=== PATIENT | male | born 1955 | race Caucasian/White ===

== ENCOUNTER 2016-10-26 07:42 | Emergency (ER) | payer OTHER ==
[2016-10-26 07:47] VITALS: BP 103/60; BMI 33.5
--- NOTE | 2016-10-26 08:04 | DR.GENAD ---
HPI - PCP Primary Care Physician: anisa ddoge - Complaint/Symptoms Chief Complaint:: patient stated he scraped his stump 3 days ago and it is red. he noticed his urine yellow with a odor 6 days ago. - Nurses notes reviewed Nurses Notes Review: Yes - Source History Provided: Patient - Mode of Arrival Mode of Arrival: Ambulatory - Timing Onset of Chief Complaint: 10/19/16 Came on: Suddenly - Duration Duration: Minutes - Location Location: right head - Severity Severity: Mild - Associated Signs and Symptoms Associated Signs and Symptoms: did not eat <WARNER BOOKER - Last Filed: 10/26/16 08:00> - HPI Comment HPI Comment: INJURY WAS 3 DAYS AGO. BRUISED AND HURTING. HIS DOCTOR WANT HIM EVALUATED FOR DVT. DID STOP HIS COUMADIN FOR FEW DAYS. HE IS COUGHING AND RT CHEST PAIN. URINE SMELLING FOR PAST 6 DAYS. NO FEVER. - Complaint/Symptoms Chief Complaint Doctors Comments: INJURY AKA LT. RIGHT CHEST DISCOMFORT AND COUGH. URINE SMELL BAD. - Nurses notes reviewed Nurses Notes Review: Yes - Severity Severity: Moderate <WILLI SUNG - Last Filed: 10/26/16 11:39> PMH - PMH Past Medical History: Yes Past Medical History: Depression, Dyslipidemia, GERD, Hypertension, Ventricular Tachycardia Past Surgical History: Yes Surgical History: Ortho Surgery - Family History History of Family Medical Conditions: Yes Family Medical History: Heart Failure - Social History Does patient currently use any type of tobacco product: No Have you used tobacco products in the last 12 months: No Type of Tobacco Use: None Does any household member use tobacco: No Alcohol Use: None Do you use any recreational Drugs:: No Lives With: Alone Lives Where: Home - infectious screening In the last 2 months have you had wt loss of >10#?: NO Have you had fever, night sweats or hemotysis?: No Have you traveled outside the country in the last 6 months?: No Isolation: Standard <WARNER BOOKER - Last Filed: 10/26/16 08:00> ROS - Review of Systems Constitutional: No Symptoms Reported Eyes: No Symptoms Reported ENTM: No Symptoms Reported Respiratoy: No Symptoms Reported Cardiovascular: No Symptoms Reported Gastrointestinal/Abdominal: No Symptoms Reported Genitourinary: No Symptoms Reported Neurological: No Symptoms Reported <WARNER BOOKER - Last Filed: 10/26/16 08:00> - Review of Systems Constitutional: negative: Chills, Fever, Weakness Eyes: negative: Eye Pain, Discharge ENTM: negative: Ear Pain, Nose Discharge, Nose Congestion, Throat Pain Respiratoy: Productive Cough. negative: Short of Breath, Wheezing, Hemoptysis Cardiovascular: Chest Pain (CHEST WALL RT SIDE) Genitourinary: Other (URINE S,MELLING). negative: Dysuria, Frequency, Hematuria Musculoskeletal: Right, Hip, Other (LAKA) Integumentary: Bruises (STUMP LT AKA) Hematologic/Lymphatic: Easy Bleeding, Easy Bruising Endocrine: No Symptoms Reported All Other Systems: Reviewed and Negative <WILLI SUNG - Last Filed: 10/26/16 11:39> PE - General Limitations: No Limitations General Appearance: Alert - Head Head Exam: Normal Inspection - Eyes Eye exam: Normal Appearance - ENT ENT Exam: Normal External Ear Exam TM/Canal Exam: Bilateral Normal Nose Exam: Normal Nose Exam Mouth Exam: Normal Inspection Throat Exam: Normal Inspection - Neck Neck Exam: Trachea Midline - Chest Chest Inspection: Symmetric Chest Wall Rise - Respiratory Respiratory Exam: Normal Lung Sounds Bilat Respiratory Exam: Bilateral Rhonchi, Lower Rhonchi - Cardiovascular Cardiovascular Exam: Regular Rate, Normal Rhythm, Normal Heart Sounds - Abdominal Exam Abdominal Exam: Normal Bowel Sounds, Soft. negative: Tenderness - Extremities Extremities Exam: Tenderness (LT AKA STUMP) - Back Back Exam: Normal Inspection - Neurologic Neurological Exam: Alert, Oriented X3 - Psychiatric Psychiatric Exam: Normal Affect, Normal Mood - Skin Skin Exam: Normal Color <WILLI SUNG - Last Filed: 10/26/16 11:39> - Vital Signs Vitals: Temperature 99.9 F Pulse Rate 78 Respiratory Rate 16 Blood Pressure [Right Arm] 108/63 Blood Pressure 103/60 O2 Sat by Pulse Oximetry 96 (WARNER BOOKER) (WILLI SUNG) MDM - Differential Diagnosis Differential Diagnosis: LT HIP FRACTURE, LT HIP CONTUSION AND SPRAIN, AKA STUMP LT CONTUSION, DVT <WILLI SUNG - Last Filed: 10/26/16 11:39> Course - Treatment Treatment: SEE ORDERS. - Education/Counseling Education/Counseling: Patient, Education Educated On: Diagnosis, Needs for Follow Up <WILLI SUNG - Last Filed: 10/26/16 11:39> ROR - Labs Reviewed Laboratory Results Reviewed?: Yes Result Diagrams: 10/26/16 08:55 10/26/16 08:55 - XRAY XRAY Interpreted by: Radiologist XRAY Findings: REPORT DISCUSS WITH PATIENT. <WILLI SUNG - Last Filed: 10/26/16 11:39> - Labs Reviewed Laboratory: WBC 13.5 X10^3/uL (3.6-10.0) H 10/26/16 08:55 RBC 3.37 X10^6/uL (4.7-6.0) L 10/26/16 08:55 Hgb 9.2 g/dL (13.5-18.0) L 10/26/16 08:55 Hct 27.0 % (42.0-54.0) L 10/26/16 08:55 MCV 80.0 fL (80.0-100.0) 10/26/16 08:55 MCH 27.2 pg (27.0-34.0) 10/26/16 08:55 MCHC 34.0 g/dL (33.0-35.0) 10/26/16 08:55 RDW 13.8 % (11.6-16.5) 10/26/16 08:55 Plt Count 260 X10^3/uL (150.0-450.0) 10/26/16 08:55 MPV 8.5 fL (7.4-11.0) 10/26/16 08:55 Neut % 80.8 % (42.0-75.0) H 10/26/16 08:55 Lymph % 7.1 % (21.0-51.0) L 10/26/16 08:55 [place] % 11.3 % (0.0-13.0) 10/26/16 08:55 Eos % 0.4 % (0.9-2.9) L 10/26/16 08:55 Baso % 0.4 % (0.2-1.0) 10/26/16 08:55 Neut # 10.9 x10^3/uL (2.2-4.8) H 10/26/16 08:55 Lymph # 1.0 X10^3/uL (1.3-2.9) L 10/26/16 08:55 [place] # 1.5 x10^3/uL (0.3-0.8) H 10/26/16 08:55 Eos # 0.1 x10^3/uL (0.0-0.2) 10/26/16 08:55 Baso # 0.1 X10^3/uL (0.0-0.1) 10/26/16 08:55 Absolute Nucleated RBC 0.0 /100WBC 10/26/16 08:55 INR Target Range - 10/26/16 08:55 INR 2.00 (0.8-1.3) H 10/26/16 08:55 PTT 48.5 SECONDS (22.9-36.5) H 10/26/16 08:55 PTT Comment - 10/26/16 08:55 Sodium 137 mmol/L (136-145) 10/26/16 08:55 Corrected Sodium 137 mmol/L (136-145) 10/26/16 08:55 Potassium 4.2 mmol/L (3.5-5.1) 10/26/16 08:55 Chloride 102 mmol/L (98-107) 10/26/16 08:55 Carbon Dioxide 26.3 mmol/L (21-32) 10/26/16 08:55 BUN 16 mg/dL (7-18) 10/26/16 08:55 Creatinine 0.81 mg/dL (0.70-1.30) 10/26/16 08:55 Est GFR (MDRD) Af Amer > 60 (>60) 10/26/16 08:55 Est GFR (MDRD) Non-Af > 60 (>60) 10/26/16 08:55 Glucose 114 mg/dL (65-99) H 10/26/16 08:55 Calcium 7.8 mg/dL (8.5-10.1) L 10/26/16 08:55 Corrected Calcium 9.1 mg/dL (8.5-10.1) 10/26/16 08:55 Total Bilirubin 0.80 mg/dL (0.2-1.0) 10/26/16 08:55 AST 13 Units/L (15-37) L 10/26/16 08:55 ALT 16 Units/L (12-78) 10/26/16 08:55 Alkaline Phosphatase 73 Units/L (46-116) 10/26/16 08:55 Total Protein 6.3 g/dL (6.4-8.2) L 10/26/16 08:55 Albumin 2.6 g/dL (3.4-5.0) L 10/26/16 08:55 Globulin 3.7 g/dL (2.5-4.5) 10/26/16 08:55 Albumin/Globulin Ratio 0.7 Ratio (1.1-2.1) L 10/26/16 08:55 Specimen Type Clean catch urine 10/26/16 08:05 Urine Color Cathi (YELLOW) 10/26/16 08:05 Urine Appearance Slightly hazy (CLEAR) 10/26/16 08:05 Urine pH 5.0 (5.0 - 8.0) 10/26/16 08:05 Ur Specific [place] 1.010 (1.000-1.030) 10/26/16 08:05 Urine Protein 1+ (NEGATIVE) 10/26/16 08:05 Urine Glucose (UA) Negative (NEGATIVE) 10/26/16 08:05 Urine Ketones Negative (NEGATIVE) 10/26/16 08:05 Urine Occult Blood Negative (NEGATIVE) 10/26/16 08:05 Urine Nitrite Negative (NEGATIVE) 10/26/16 08:05 Urine Bilirubin Negative (NEGATIVE) 10/26/16 08:05 Urine Urobilinogen Normal (NORMAL) 10/26/16 08:05 Ur Leukocyte Esterase Negative (NEGATIVE) 10/26/16 08:05 Urine RBC 0 /HPF (NEGATIVE) 10/26/16 08:05 Urine WBC 0-1 /HPF (NEGATIVE) 10/26/16 08:05 Ur Squamous Epith Cells Rare /HPF (NEGATIVE) 10/26/16 08:05 Urine Bacteria Negative /HPF (NEGATIVE) 10/26/16 08:05 Urine Mucus Few /HPF (NEGATIVE) 10/26/16 08:05 Ur Culture Indicated? No/not indicated 10/26/16 08:05 <WARNER BOOKER - Last Filed: 10/26/16 08:00> <WILLI SUNG - Last Filed: 10/26/16 11:39> - Diagnosis Discharge Problem: Amputation stump injury, Hip pain, left Unilateral complete AKA Qualifiers: Laterality: left Qualified Code(s): Z89.612 - Acquired absence of left leg above knee - Discharge Plan Disposition: HOME, SELF-CARE Condition: Stable - Follow ups/Referrals Follow ups/Referrals: NFD,None [Primary Care Provider] - 3 days - Instructions Instructions: Hip Pain, Contusion, [id number]
[2016-10-26 08:17] LABS: BILIRUBIN,URINE NEGATIVE (NEGATIVE); BLOOD/HEMOGLOBIN,URINE NEGATIVE (NEGATIVE); GLUCOSE, URINE NEGATIVE (NEGATIVE); KETONES,URINE NEGATIVE (NEGATIVE); LEUKOCYTE ESTERASE ,URINE NEGATIVE (NEGATIVE); NITRITES,URINE NEGATIVE (NEGATIVE); PROTEIN,URINE 1+ (NEGATIVE); UROBILINOGEN,URINE NORMAL (NORMAL)
[2016-10-26 08:29] LABS: APPEARANCE,URINE SLIGHTLY HAZY (CLEAR); BACTERIA,URINE NEGATIVE /HPF (NEGATIVE); COLOR,URINE AMBER (YELLOW); MUCUS,URINE FEW /HPF (NEGATIVE); RBC,URINE 0 /HPF (NEGATIVE); SQUAMOUS EPITHELIAL CELL,UR RARE /HPF (NEGATIVE)
--- NOTE | 2016-10-26 08:45 | CT ---
CT head without contrast Indication: Pain after fall. Technique: Axial images from the skullbase to the vertex without contrast. Coronal and sagittal refo rmats provided. Comparison: October 06, [address] Findings: There is no acute intracranial hemorrhage, mass or mass effect. No extra-axial fluid colle ction or abnormal area of hypoattenuation to suggest infarct seen. Ventricles and sulci are normal. Review of bone windows shows no osseous abnormality. Paranasal sinuses and mastoid air cells are julienne ar. Impression: No acute intracranial abnormality or change from the prior. Reported By:
--- NOTE | 2016-10-26 08:59 | VAS ---
HISTORY: Fall with bruised left stump Study: Doppler ultrasound of the deep veins of the left leg above the stump Comparison: None TECHNIQUE: Multiple umaña scale and color flow Doppler images of the deep venous system were obtaine d of the left lower extremity. FINDINGS: The deep venous system of the left lower extremity was evaluated from the level of the common femora l vein through the superficial femoral vein , above the stump. Normal color flow and augmentation can be observed. In addition, normal compression is seen throughout the deep venous system. IMPRESSION: 1. Negative for DVT. Reported By:
--- NOTE | 2016-10-26 09:08 | RAD ---
Left hip two views Indication: Pain after trauma. Findings: There is anatomic ossification in the left femur osteotomy site. Dystrophic calcifications seen laterally. No aggressive periosteal reaction or cortical destruction seen. Pelvis degenerative change of the SI joints, hips and symphysis pubis noted. Impression: No acute osseous abnormality seen. No specific evidence of osteomyelitis or Reported By:
--- NOTE | 2016-10-26 09:14 | RAD ---
HISTORY: Chest pain Study: Single-view chest Comparison: October 06, 2015 Findings: The trachea is midline. The cardiac silhouette is unremarkable. The lungs are clear without focal infiltrate or effusion. Multiple chronic rib fractures are identified on the right. IMPRESSION: 1. No acute cardiopulmonary disease. Reported By:
[2016-10-26 09:25] LABS: BASOPHILS # (AUTO) 0.1 X10^3/uL (0.0-0.1); BASOPHILS % (AUTO) 0.4 % (0.2-1.0); EOSINOPHILS # (AUTO) 0.1 x10^3/uL (0.0-0.2); EOSINOPHILS % (AUTO) 0.4 % (0.9-2.9); HEMOGLOBIN 9.2 g/dL (13.5-18.0); LYMPHOCYTES % (AUTO) 7.1 % (21.0-51.0); MEAN CORPUSCULAR HEMOGLOBIN 27.2 pg (27.0-34.0); MEAN PLATELET VOLUME 8.5 fL (7.4-11.0); MONOCYTES # (AUTO) 1.5 x10^3/uL (0.3-0.8); MONOCYTES % (AUTO) 11.3 % (0.0-13.0); NEUTROPHILS # (AUTO) 10.9 x10^3/uL (2.2-4.8); NEUTROPHILS % (AUTO) 80.8 % (42.0-75.0); PLATELET COUNT 260 X10^3/uL (150.0-450.0); RED BLOOD COUNT 3.37 X10^6/uL (4.7-6.0); RED CELL DISTRIBUTION WIDTH 13.8 % (11.6-16.5); WHITE BLOOD COUNT 13.5 X10^3/uL (3.6-10.0)
[2016-10-26 09:55] LABS: BLOOD UREA NITROGEN 16 mg/dL (7-18); CALCIUM 7.8 mg/dL (8.5-10.1); CARBON DIOXIDE 26.3 mmol/L (21-32); CHLORIDE 102 mmol/L (98-107); COR NA(FOR HYPERGLY) 137 mmol/L (136-145); CREATININE 0.81 mg/dL (0.70-1.30); GLUCOSE 114 mg/dL (65-99); SODIUM 137 mmol/L (136-145); eGFR BLACK RACES > 60 (>60); eGFR NON BLACK RACES > 60 (>60)
[2016-10-26 10:07] LABS: ALANINE AMINOTRANSFERASE 16 Units/L (12-78); ALBUMIN 2.6 g/dL (3.4-5.0); ALKALINE PHOSPHATASE 73 Units/L (46-116); ASPARTATE AMINO TRANSFERASE 13 Units/L (15-37); COR CA(FOR HYPOALB) 9.1 mg/dL (8.5-10.1); TOTAL PROTEIN 6.3 g/dL (6.4-8.2)
== END 2016-10-26 10:22 | disposition home or self-care (01) ==
LOC: ER 07:54
DX: M25.552 Pain in left hip (principal); T87.89 Other complications of amputation stump; Z89.612 Acquired absence of left leg above knee
CPT/HCPCS: 36415; 70450; 71010; 73501; 80053; 81001; 85025; 85610; 85730; 93971; 99282; 99283

== ENCOUNTER 2021-12-11 10:18 | Inpatient (IN) ==
[2021-12-11 10:23] LABS: ABG BASE EXCESS 2.8 mmol/L (-2.0-2.0); ABG HCO3 27.2 mmol/L (22-26)
[2021-12-11 10:24] LABS: ABG ALLEN TEST POS
[2021-12-11] MEDS ORDERED: NS 1,000 ML IV 1,000 ML ONE (10:45)
[2021-12-11] MEDS ORDERED: NS 1,000 ML IV 1,000 ML IV ONE (10:58)
[2021-12-11 10:59] LABS: BASOPHILS % (AUTO) 0.6 % (0.2-1.0); EOSINOPHILS % (AUTO) 0.1 % (0.9-2.9); LYMPHOCYTES # (AUTO) 0.4 X10^3/uL (1.3-2.9); LYMPHOCYTES % (AUTO) 5.3 % (21.0-51.0); MEAN CORPUSCULAR HEMOGLOBIN 23.6 pg (27.0-34.0); MEAN CORPUSCULAR HGB CONC 31.5 g/dL (33.0-35.0); MEAN PLATELET VOLUME 7.7 fL (7.4-11.0); MONOCYTES # (AUTO) 0.4 x10^3/uL (0.3-0.8); MONOCYTES % (AUTO) 5.2 % (0.0-13.0); NEUTROPHILS # (AUTO) 7.5 x10^3/uL (2.2-4.8); NEUTROPHILS % (AUTO) 88.8 % (42.0-75.0); RED BLOOD COUNT 5.06 X10^6/uL (4.7-6.0); RED CELL DISTRIBUTION WIDTH 18.1 % (11.6-16.5); WHITE BLOOD COUNT 8.4 X10^3/uL (3.6-10.0)
[2021-12-11 11:00] LABS: BILIRUBIN,URINE 1+ (NEGATIVE); BLOOD/HEMOGLOBIN,URINE 3+ (NEGATIVE); GLUCOSE, URINE NEGATIVE (NEGATIVE); KETONES,URINE NEGATIVE (NEGATIVE); LEUKOCYTE ESTERASE ,URINE 1+ (NEGATIVE); NITRITES,URINE NEGATIVE (NEGATIVE); PROTEIN,URINE 1+ (NEGATIVE); UROBILINOGEN,URINE 2+ (NORMAL)
[2021-12-11 11:12] LABS: APPEARANCE,URINE SLIGHTLY HAZY (CLEAR); COLOR,URINE AMBER (YELLOW)
--- NOTE | 2021-12-11 11:25 | CT ---
HISTORYAMSSTUDYBRAIN W/O [id number]/25/2020.TECHNIQUEMultipl e axial images of the brain were obtained from the skull base to the vertex without administration of IV contrast. Dose reduction techniques including Automated Exposure Control (AEC) and adjustment of mA and kV were utilized.FINDINGSNo acute intraparenchymal hemorrhage or mass can be identified. No extra-axial fluid collections are seen. No alteration in the attenuation of the brain parenchyma can be identified to suggest acute or subacute ischemic change. The ventricular system is symmetric and nondilated. There is chronic appearing mucoperiosteal thickening of the left maxillary sinus without intra sinus air-fluid level. There is extracranial soft tissue swelling with on the left without radiopaque foreign body or underlying calvarial fracture.IMPRESSION1. No acute intracranial abnormality.2. Extracranial soft tissue swelling on the left without radiopaque foreign body or underlying calvarial fracture. Clinical correlation is requested.3. Chronic appearing mucoperiosteal thickening of the left maxillary sinus without CT evidence of acute sinusitis.Electronically signed by: TODD ESTRADA (Dec 11, 2021 11:24:03)
[2021-12-11 11:30] LABS: BACTERIA,URINE TRACE /HPF (NEGATIVE); CALCIUM OXALATE CRYSTALS,UR RARE /HPF (NEGATIVE); HYALINE CASTS, URINE RARE /LPF (NEGATIVE); SQUAMOUS EPITHELIAL CELL,UR NEGATIVE /HPF (NEGATIVE)
[2021-12-11 11:46] LABS: ALANINE AMINOTRANSFERASE 46 Units/L (12-78); ALKALINE PHOSPHATASE 166 Units/L (46-116); ASPARTATE AMINO TRANSFERASE 68 Units/L (15-37); BLOOD UREA NITROGEN 68 mg/dL (7-18); CALCIUM 10.2 mg/dL (8.5-10.1); CARBON DIOXIDE 29.1 mmol/L (21-32); CHLORIDE 110 mmol/L (98-107); COR CA(FOR HYPOALB) 11.8 mg/dL (8.5-10.1); COR NA(FOR HYPERGLY) 152 mmol/L (136-145); CREATINE KINASE 243 Units/L (39-308); CREATININE 1.26 mg/dL (0.70-1.30); TOTAL PROTEIN 6.6 g/dL (6.4-8.2); eGFR NON BLACK RACES > 60 (>60)
[2021-12-11 11:48] LABS: LACTIC ACID 2.7 mmol/L (0.4-2.0)
[2021-12-11 11:51] LABS: SODIUM 151 mmol/L (136-145)
--- NOTE | 2021-12-11 12:04 | RAD ---
HISTORYAMSSTUDYPortable AP chestCOMPARISONChest CT 10/24/2019FINDINGSHeart size normal. The lungs are probably clear although the medial right lung and hilum are obscured by patient rotation. Right rib deformities are consistent with old trauma. There is no evidence for pneumothorax or pleural fluid.IMPRESSIONNo acute findings, see above technical limitation.Electronically signed by: ADRIA COOK (Dec 11, 2021 12:02:55)
[2021-12-11] MEDS ORDERED: LR 1,000 ML IV 1,000 ML IV ONE ×3 (12:09→13:26)
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
[2021-12-11] MEDS ORDERED: TOBRAMYCIN SULFATE 120 MG in NS 100 ML IV 100 ML IV ONE (13:26)
[2021-12-11 13:34] LABS: BLOOD UREA NITROGEN 67 mg/dL (7-18); CALCIUM 9.7 mg/dL (8.5-10.1); CARBON DIOXIDE 29.3 mmol/L (21-32); CHLORIDE 113 mmol/L (98-107); COR NA(FOR HYPERGLY) 150 mmol/L (136-145); CREATININE 1.22 mg/dL (0.70-1.30); SODIUM 149 mmol/L (136-145); eGFR NON BLACK RACES > 60 (>60)
[2021-12-11] MEDS ORDERED: NS 250 ML IV 250 ML IV ONE (13:34)
[2021-12-11] MEDS ORDERED: D5W 250 ML IV 250 ML IV ONE (13:34)
[2021-12-11] MEDS ORDERED: TOBRAMYCIN SULFATE ONE (13:34)
[2021-12-11] MEDS ORDERED: LEVOPHED INJ (VIAL) ONE (13:37)
[2021-12-11] MEDS: LEVOPHED 8 MG/250 ML IV *PREMIX 8 MG/250 ML PLAST..BAG IV PRN (13:44)
[2021-12-11] MEDS ORDERED: NS 1/2 1,000 ML IV 1,000 ML IV ONE (15:01)
[2021-12-11] MEDS: NS 1/2 1,000 ML IV 1,000 ML IV SCH ×2 (15:05→21:55)
--- NOTE | 2021-12-11 15:43 | DR.OPNOTE ---
OP NOTE Pre-Op Diagnosis: Hypothermia, dehydration, rhabdomyolysis Post-Op Diagnosis: same Procedure Date Date Of Procedure: 12/11/21 Procedure: PROCEDURE: Placement of left subclavian vein triple Lumen venous access catheter, non tunneled NARRATIVE : Patient was placed in the Trendelenburg position and the entire left chest and left neck prepped and draped in sterile fashion. The skin overlying the left clavicle infiltrated with 1% Xylocaine and a 16-gauge needle used to puncture the left subclavian vein with good aspiration of blood. Guide wire placed without difficulty. Incision made over the guide wire and dilator placed over the guide wire into the left subclavian vein. Dilator removed and the catheter placed over the guide wire and the guide wire removed . All 3 ports aspirated of blood and flushed with heparinized saline . Post-procedure chest x-ray showed no pneumothorax with the entrance of the catheter in the left subclavian vein and then going up the left internal jugular vein. It should be able to be used . Type of Anesthesia: Local (1 % Xylocaine) EBL: minimal Complications:: none Disposition/Condition: Pt. tolerated procedure without difficulty. Post procedure CXR shows central venous access going down the left subclavian vein and into the left internal jugular vein.
--- NOTE | 2021-12-11 15:58 | RAD ---
HISTORYLine placementSTUDYPortable AP chestCOMPARISONAugust 2021FINDINGSThere is no acute finding or evidence for interval change in appearance of heart or lungs.A new surgical catheter is projected over the left upper chest, presumably a subclavian entry with passage into the neck. The tip of the catheter is not included on this image.IMPRESSIONSuboptimal/malposition CVL placement. See above.Electronically signed by: ADRIA COOK (Dec 11, 2021 15:56:15)
[2021-12-11] MEDS ORDERED: NS 1/2 1,000 ML IV 1,000 ML IV SCH (17:09)
[2021-12-11 17:46] LABS: BASOPHILS # (AUTO) 0.1 X10^3/uL (0.0-0.1); NEUTROPHILS # (AUTO) 16.1 x10^3/uL (2.2-4.8)
[2021-12-11 17:50] LABS: BASOPHILS % (AUTO) 0.6 % (0.2-1.0); HEMATOCRIT 34.7 % (42.0-54.0); LYMPHOCYTES # (AUTO) 0.5 X10^3/uL (1.3-2.9); LYMPHOCYTES % (AUTO) 3.1 % (21.0-51.0); MEAN CORPUSCULAR HEMOGLOBIN 23.5 pg (27.0-34.0); MEAN CORPUSCULAR HGB CONC 31.7 g/dL (33.0-35.0); MEAN CORPUSCULAR VOLUME 74.1 fL (80.0-100.0); MEAN PLATELET VOLUME 7.4 fL (7.4-11.0); MONOCYTES # (AUTO) 0.9 x10^3/uL (0.3-0.8); NEUTROPHILS % (AUTO) 91.3 % (42.0-75.0); RED BLOOD COUNT 4.68 X10^6/uL (4.7-6.0); RED CELL DISTRIBUTION WIDTH 18.2 % (11.6-16.5); WHITE BLOOD COUNT 17.6 X10^3/uL (3.6-10.0)
[2021-12-11] MEDS: LANOXIN INJ IVP SCH (17:50)
[2021-12-11 17:53] LABS: INR 1.69 (0.8-1.3)
[2021-12-11 17:54] LABS: LACTIC ACID 1.7 mmol/L (0.4-2.0)
[2021-12-11 18:01] LABS: ALANINE AMINOTRANSFERASE 48 Units/L (12-78); ALBUMIN 1.7 g/dL (3.4-5.0); ALKALINE PHOSPHATASE 163 Units/L (46-116); ASPARTATE AMINO TRANSFERASE 75 Units/L (15-37); BLOOD UREA NITROGEN 66 mg/dL (7-18); CALCIUM 9.2 mg/dL (8.5-10.1); CARBON DIOXIDE 28.1 mmol/L (21-32); CHLORIDE 111 mmol/L (98-107); CREATINE KINASE 147 Units/L (39-308); CREATININE 1.27 mg/dL (0.70-1.30); MAGNESIUM 1.8 mg/dL (1.7-2.9); SODIUM 148 mmol/L (136-145); TOTAL PROTEIN 5.9 g/dL (6.4-8.2); eGFR NON BLACK RACES 60 (>60)
[2021-12-11 18:21] LABS: PLATELET MORPHOLOGY COMMENT NORMAL (NORMAL)
[2021-12-11 18:24] LABS: ANISOCYTOSIS SLIGHT; MICROCYTOSIS SLIGHT
[2021-12-11 18:25] LABS: HYPOCHROMASIA SLIGHT
[2021-12-11] MEDS: INVanz INJ 1 GRAM VIAL 1 G in NS 100 ML IV 100 ML IV SCH (21:33)
[2021-12-11] MEDS ORDERED: POTASSIUM CHL 60 MEQ/NS 0.45% 500 ML IV PRN (21:39)
[2021-12-11] MEDS ORDERED: MICRO K EXTEN CAP 10 MEQ PO PRN (21:39)
[2021-12-11] MEDS ORDERED: POTASSIUM CHLORIDE LIQ 20 MEQ UDC PO PRN (21:39)
[2021-12-11] MEDS ORDERED: POTASSIUM CHL 40 MEQ/NS 0.45% 500 ML IV PRN (21:39)
[2021-12-11] MEDS: KLOR-CON PO PRN (22:42)
[2021-12-11] MEDS ORDERED: NS IV ONE (23:20)
[2021-12-12] MEDS: LANOXIN INJ IVP SCH ×2 (00:37→06:15)
[2021-12-12] MEDS: LEVOPHED 8 MG/250 ML IV *PREMIX 8 MG/250 ML PLAST..BAG IV PRN ×3 (00:57→20:42)
[2021-12-12] MEDS: NS 1/2 1,000 ML IV 1,000 ML IV SCH ×5 (01:10→22:02)
[2021-12-12] MEDS ORDERED: TYLENOL 325 MG TAB PO PRN (03:53)
[2021-12-12] MEDS ORDERED: TYLENOL 325 MG TAB PO ONE (03:58)
[2021-12-12] MEDS ORDERED: TYLENOL SUPP 650 MG ONE (04:07)
[2021-12-12 05:18] LABS: BASOPHILS # (AUTO) 0.1 X10^3/uL (0.0-0.1); BASOPHILS % (AUTO) 0.6 % (0.2-1.0); HEMATOCRIT 33.6 % (42.0-54.0); HEMOGLOBIN 10.7 g/dL (13.5-18.0); LYMPHOCYTES # (AUTO) 0.7 X10^3/uL (1.3-2.9); LYMPHOCYTES % (AUTO) 4.3 % (21.0-51.0); MEAN CORPUSCULAR HEMOGLOBIN 23.2 pg (27.0-34.0); MEAN CORPUSCULAR HGB CONC 31.7 g/dL (33.0-35.0); MEAN CORPUSCULAR VOLUME 73.3 fL (80.0-100.0); MEAN PLATELET VOLUME 7.4 fL (7.4-11.0); MONOCYTES # (AUTO) 1.3 x10^3/uL (0.3-0.8); MONOCYTES % (AUTO) 7.9 % (0.0-13.0); NEUTROPHILS # (AUTO) 14.2 x10^3/uL (2.2-4.8); NEUTROPHILS % (AUTO) 87.2 % (42.0-75.0); RED BLOOD COUNT 4.59 X10^6/uL (4.7-6.0); RED CELL DISTRIBUTION WIDTH 17.7 % (11.6-16.5); WHITE BLOOD COUNT 16.3 X10^3/uL (3.6-10.0)
[2021-12-12 05:32] LABS: ALANINE AMINOTRANSFERASE 46 Units/L (12-78); ALBUMIN 1.8 g/dL (3.4-5.0); ALKALINE PHOSPHATASE 191 Units/L (46-116); ASPARTATE AMINO TRANSFERASE 70 Units/L (15-37); BLOOD UREA NITROGEN 67 mg/dL (7-18); CALCIUM 8.9 mg/dL (8.5-10.1); CARBON DIOXIDE 24.2 mmol/L (21-32); CHLORIDE 107 mmol/L (98-107); COR CA(FOR HYPOALB) 10.7 mg/dL (8.5-10.1); CREATININE 1.64 mg/dL (0.70-1.30); MAGNESIUM 1.6 mg/dL (1.7-2.9); SODIUM 142 mmol/L (136-145); TOTAL PROTEIN 6.1 g/dL (6.4-8.2); eGFR NON BLACK RACES 45 (>60)
[2021-12-12 05:53] LABS: ANISOCYTOSIS SLIGHT; HYPOCHROMASIA 1+; MICROCYTOSIS SLIGHT; PLATELET MORPHOLOGY COMMENT NORMAL (NORMAL)
--- NOTE | 2021-12-12 06:02 | RAD ---
PROCEDURE: Left Shoulder 3 Views .HISTORY: PAIN AND SWELLING .TECHNIQUE: Left AP internal and external rotation and trans-scapular views .COMPARISON: None .TECHNICAL QUALITY: Satisfactory .FINDINGS:Obliquely oriented proximal humeral shaft fracture with 2.5 cm of medial displacement.No other acute bony abnormality.No soft tissue abnormality.IMPRESSION:Proximal humeral shaft fracture with medial displacement. Distal fracture fragment could encroach on the brachial artery and clinical correlation recommended.Electronically signed by: Cornell Esocbar (Dec 12, 2021 06:00:52)
[2021-12-12] MEDS: INVanz INJ 1 GRAM VIAL 1 G in NS 100 ML IV 100 ML IV SCH (08:30)
[2021-12-12] MEDS: MAGNESIUM SULFATE 1 GRAM/100 mL PREMIX 1 G/100 ML BAG IV PRN ×2 (09:59→12:31)
[2021-12-12] MEDS ORDERED: OFIRMEV IV 1000 MG VIAL 1,000 MG/100 ML VIAL IV PRN (11:22)
[2021-12-12 13:33] VITALS: BMI 19.1
[2021-12-12] MEDS ORDERED: NS 1/2 1,000 ML IV 1,000 ML IV ONE ×2 (14:19→21:30)
--- NOTE | 2021-12-12 14:24 | RAD ---
HISTORYTachycardiaSTUDYAP chestCOMPARISONAugust 2021FINDINGSHeart size remains normal with no evidence for developing airspace consolidation, colton pulmonary edema or pleural effusion. Left subclavian catheter is again noted extending into the left lower neck, the tip is not included on the image. Nonacute left humeral fracture again noted.IMPRESSIONNo significant change in appearance of heart or lungs. Similar malposition of central line.Electronically signed by: ADRIA COOK (Dec 12, 2021 14:22:14)
[2021-12-12] MEDS: PROTONIX INJ 40 MG VIAL IVP SCH (14:30)
[2021-12-12 14:40] LABS: FREE T4 (FREE THYROXINE) 1.06 ng/dL (0.76-1.46); TSH (3RD GENERATION) 2.724 uIU/mL (0.358-3.74)
--- NOTE | 2021-12-12 15:53 | RAD ---
HISTORYAbdomen distensionSTUDYKUBCOMPARISONNone r.br.br bowel and colon. There is no evidence for abdominal mass, ascites or urinary calcification. Surgical clips are noted in the right upper abdomen.IMPRESSIONMild nonobstructive intestinal distention. Normal KUB otherwise.Electronically signed by: ADRIA COOK (Dec 12, 2021 15:51:37)
[2021-12-13] MEDS: NS 1/2 1,000 ML IV 1,000 ML IV SCH ×5 (04:44→22:26)
[2021-12-13 05:18] LABS: BASOPHILS % (AUTO) 0.2 % (0.2-1.0); EOSINOPHILS % (AUTO) 0.1 % (0.9-2.9); HEMATOCRIT 28.7 % (42.0-54.0); HEMOGLOBIN 9.2 g/dL (13.5-18.0); MEAN CORPUSCULAR HEMOGLOBIN 23.5 pg (27.0-34.0); MEAN CORPUSCULAR HGB CONC 32.1 g/dL (33.0-35.0); MEAN CORPUSCULAR VOLUME 73.4 fL (80.0-100.0); MEAN PLATELET VOLUME 7.4 fL (7.4-11.0); MONOCYTES % (AUTO) 7.8 % (0.0-13.0); NEUTROPHILS # (AUTO) 10.2 x10^3/uL (2.2-4.8); NEUTROPHILS % (AUTO) 83.9 % (42.0-75.0); RED BLOOD COUNT 3.91 X10^6/uL (4.7-6.0); RED CELL DISTRIBUTION WIDTH 17.2 % (11.6-16.5); WHITE BLOOD COUNT 12.1 X10^3/uL (3.6-10.0)
[2021-12-13 05:38] LABS: ALANINE AMINOTRANSFERASE 39 Units/L (12-78); ALBUMIN 1.5 g/dL (3.4-5.0); ALKALINE PHOSPHATASE 183 Units/L (46-116); ASPARTATE AMINO TRANSFERASE 59 Units/L (15-37); BLOOD UREA NITROGEN 53 mg/dL (7-18); CALCIUM 8.5 mg/dL (8.5-10.1); CARBON DIOXIDE 24.3 mmol/L (21-32); CHLORIDE 104 mmol/L (98-107); CHOL/HDL RATIO 4.3 (0.0-5.0); CHOLESTEROL 90 mg/dL (0-200); COR CA(FOR HYPOALB) 10.5 mg/dL (8.5-10.1); CREATININE 1.14 mg/dL (0.70-1.30); HDL CHOLESTEROL 21 mg/dL (40-60); MAGNESIUM 1.9 mg/dL (1.7-2.9); SODIUM 137 mmol/L (136-145); TOTAL PROTEIN 5.2 g/dL (6.4-8.2); TRIGLYCERIDES 82 mg/dL (0-150); eGFR NON BLACK RACES > 60 (>60)
[2021-12-13 05:39] LABS: TOTAL PSA 1.13 ng/mL (0.13-4.0)
[2021-12-13 05:58] LABS: ANISOCYTOSIS SLIGHT; HYPOCHROMASIA 1+; MICROCYTOSIS SLIGHT; PLATELET MORPHOLOGY COMMENT NORMAL (NORMAL)
[2021-12-13] MEDS ORDERED: NS 1/2 1,000 ML IV 1,000 ML IV ONE ×2 (10:32→22:17)
[2021-12-13] MEDS: INVanz INJ 1 GRAM VIAL 1 G in NS 100 ML IV 100 ML IV SCH (10:40)
[2021-12-13] MEDS: PROTONIX INJ 40 MG VIAL IVP SCH (10:40)
[2021-12-13] MEDS: MAGNESIUM SULFATE 1 GRAM/100 mL PREMIX 1 G/100 ML BAG IV PRN ×2 (12:51→15:21)
[2021-12-13] MEDS: LEVOPHED 8 MG/250 ML IV *PREMIX 8 MG/250 ML PLAST..BAG IV PRN ×2 (12:57→19:06)
[2021-12-14] MEDS: LEVOPHED 8 MG/250 ML IV *PREMIX 8 MG/250 ML PLAST..BAG IV PRN ×2 (01:41→15:51)
[2021-12-14 05:26] LABS: BASOPHILS % (AUTO) 0.3 % (0.2-1.0); EOSINOPHILS % (AUTO) 0.4 % (0.9-2.9); HEMATOCRIT 28.5 % (42.0-54.0); LYMPHOCYTES # (AUTO) 0.8 X10^3/uL (1.3-2.9); MEAN CORPUSCULAR HEMOGLOBIN 23.2 pg (27.0-34.0); MEAN CORPUSCULAR HGB CONC 31.6 g/dL (33.0-35.0); MEAN CORPUSCULAR VOLUME 73.4 fL (80.0-100.0); MEAN PLATELET VOLUME 7.5 fL (7.4-11.0); MONOCYTES # (AUTO) 1.2 x10^3/uL (0.3-0.8); MONOCYTES % (AUTO) 9.7 % (0.0-13.0); NEUTROPHILS # (AUTO) 9.9 x10^3/uL (2.2-4.8); NEUTROPHILS % (AUTO) 82.6 % (42.0-75.0); RED BLOOD COUNT 3.88 X10^6/uL (4.7-6.0); RED CELL DISTRIBUTION WIDTH 17.9 % (11.6-16.5)
[2021-12-14 05:43] LABS: ALANINE AMINOTRANSFERASE 35 Units/L (12-78); ALBUMIN 1.5 g/dL (3.4-5.0); ALKALINE PHOSPHATASE 182 Units/L (46-116); ASPARTATE AMINO TRANSFERASE 47 Units/L (15-37); BLOOD UREA NITROGEN 32 mg/dL (7-18); CALCIUM 8.7 mg/dL (8.5-10.1); CARBON DIOXIDE 25.7 mmol/L (21-32); CHLORIDE 106 mmol/L (98-107); COR CA(FOR HYPOALB) 10.7 mg/dL (8.5-10.1); CREATININE 0.69 mg/dL (0.70-1.30); SODIUM 140 mmol/L (136-145); TOTAL PROTEIN 5.3 g/dL (6.4-8.2); eGFR NON BLACK RACES > 60 (>60)
[2021-12-14 05:54] LABS: ANISOCYTOSIS SLIGHT; HYPOCHROMASIA 1+; MICROCYTOSIS SLIGHT; PLATELET MORPHOLOGY COMMENT NORMAL (NORMAL)
[2021-12-14] MEDS: NS 1/2 1,000 ML IV 1,000 ML IV SCH ×4 (06:26→21:36)
[2021-12-14] MEDS ORDERED: NS 1/2 1,000 ML IV 1,000 ML IV ONE ×2 (08:26→21:31)
[2021-12-14] MEDS: PROTONIX INJ 40 MG VIAL IVP SCH (08:36)
[2021-12-14] MEDS: INVanz INJ 1 GRAM VIAL 1 G in NS 100 ML IV 100 ML IV SCH (08:36)
[2021-12-14] MEDS: K-RIDER 10 MEQ/NS 100 ML 10 MEQ/100 ML BAG IV PRN ×2 (10:16→12:26)
[2021-12-14] MEDS: PREVACID PO SCH (16:33)
[2021-12-14] MEDS: K-DUR TAB 20 MEQ PO PRN (20:15)
[2021-12-15 05:16] LABS: BASOPHILS % (AUTO) 0.3 % (0.2-1.0); EOSINOPHILS # (AUTO) 0.1 x10^3/uL (0.0-0.2); EOSINOPHILS % (AUTO) 0.9 % (0.9-2.9); HEMATOCRIT 26.5 % (42.0-54.0); HEMOGLOBIN 8.6 g/dL (13.5-18.0); LYMPHOCYTES # (AUTO) 0.8 X10^3/uL (1.3-2.9); LYMPHOCYTES % (AUTO) 7.5 % (21.0-51.0); MEAN CORPUSCULAR HEMOGLOBIN 23.7 pg (27.0-34.0); MEAN CORPUSCULAR HGB CONC 32.4 g/dL (33.0-35.0); MEAN CORPUSCULAR VOLUME 73.3 fL (80.0-100.0); MEAN PLATELET VOLUME 7.4 fL (7.4-11.0); MONOCYTES # (AUTO) 1.4 x10^3/uL (0.3-0.8); MONOCYTES % (AUTO) 13.3 % (0.0-13.0); NEUTROPHILS # (AUTO) 8.5 x10^3/uL (2.2-4.8); RED BLOOD COUNT 3.62 X10^6/uL (4.7-6.0); RED CELL DISTRIBUTION WIDTH 17.6 % (11.6-16.5); WHITE BLOOD COUNT 10.9 X10^3/uL (3.6-10.0)
[2021-12-15 05:29] LABS: ALANINE AMINOTRANSFERASE 32 Units/L (12-78); ALBUMIN 1.4 g/dL (3.4-5.0); ALKALINE PHOSPHATASE 172 Units/L (46-116); ASPARTATE AMINO TRANSFERASE 54 Units/L (15-37); BLOOD UREA NITROGEN 16 mg/dL (7-18); CALCIUM 8.3 mg/dL (8.5-10.1); CARBON DIOXIDE 24.5 mmol/L (21-32); CHLORIDE 105 mmol/L (98-107); COR CA(FOR HYPOALB) 10.4 mg/dL (8.5-10.1); CREATININE 0.62 mg/dL (0.70-1.30); SODIUM 139 mmol/L (136-145); TOTAL PROTEIN 5.1 g/dL (6.4-8.2); eGFR NON BLACK RACES > 60 (>60)
[2021-12-15] MEDS ORDERED: NS 1/2 1,000 ML IV 1,000 ML IV ONE ×2 (05:39→16:20)
[2021-12-15 05:42] LABS: ANISOCYTOSIS SLIGHT; HYPOCHROMASIA 1+; MICROCYTOSIS SLIGHT; PLATELET MORPHOLOGY COMMENT NORMAL (NORMAL)
[2021-12-15] MEDS: NS 1/2 1,000 ML IV 1,000 ML IV SCH ×3 (05:45→16:25)
[2021-12-15] MEDS: INVanz INJ 1 GRAM VIAL 1 G in NS 100 ML IV 100 ML IV SCH (08:22)
[2021-12-15] MEDS: PREVACID PO SCH (08:23)
[2021-12-15] MEDS: K-DUR TAB 20 MEQ PO PRN (08:23)
[2021-12-15] MEDS: HEMOCYTE-PLUS PO SCH (18:25)
[2021-12-16] MEDS ORDERED: NS 1/2 1,000 ML IV 1,000 ML IV ONE ×2 (02:32→13:18)
[2021-12-16] MEDS: NS 1/2 1,000 ML IV 1,000 ML IV SCH ×4 (04:37→14:02)
[2021-12-16 05:31] LABS: BASOPHILS % (AUTO) 0.4 % (0.2-1.0); EOSINOPHILS # (AUTO) 0.1 x10^3/uL (0.0-0.2); HEMATOCRIT 26.9 % (42.0-54.0); HEMOGLOBIN 8.7 g/dL (13.5-18.0); LYMPHOCYTES # (AUTO) 0.9 X10^3/uL (1.3-2.9); LYMPHOCYTES % (AUTO) 10.1 % (21.0-51.0); MEAN CORPUSCULAR HEMOGLOBIN 23.7 pg (27.0-34.0); MEAN CORPUSCULAR HGB CONC 32.4 g/dL (33.0-35.0); MEAN CORPUSCULAR VOLUME 73.2 fL (80.0-100.0); MEAN PLATELET VOLUME 7.7 fL (7.4-11.0); MONOCYTES # (AUTO) 1.3 x10^3/uL (0.3-0.8); MONOCYTES % (AUTO) 15.3 % (0.0-13.0); NEUTROPHILS # (AUTO) 6.4 x10^3/uL (2.2-4.8); NEUTROPHILS % (AUTO) 73.2 % (42.0-75.0); RED BLOOD COUNT 3.68 X10^6/uL (4.7-6.0); RED CELL DISTRIBUTION WIDTH 17.6 % (11.6-16.5); WHITE BLOOD COUNT 8.7 X10^3/uL (3.6-10.0)
[2021-12-16 05:46] LABS: ALANINE AMINOTRANSFERASE 37 Units/L (12-78); ALBUMIN 1.4 g/dL (3.4-5.0); ALKALINE PHOSPHATASE 170 Units/L (46-116); ASPARTATE AMINO TRANSFERASE 64 Units/L (15-37); BLOOD UREA NITROGEN 12 mg/dL (7-18); CALCIUM 8.4 mg/dL (8.5-10.1); CARBON DIOXIDE 27.4 mmol/L (21-32); CHLORIDE 104 mmol/L (98-107); COR CA(FOR HYPOALB) 10.5 mg/dL (8.5-10.1); CREATININE 0.39 mg/dL (0.70-1.30); SODIUM 138 mmol/L (136-145); TOTAL PROTEIN 5.2 g/dL (6.4-8.2); eGFR NON BLACK RACES > 60 (>60)
[2021-12-16 06:01] LABS: ANISOCYTOSIS SLIGHT; HYPOCHROMASIA SLIGHT; MICROCYTOSIS SLIGHT; PLATELET MORPHOLOGY COMMENT NORMAL (NORMAL)
[2021-12-16] MEDS: PREVACID PO SCH (08:00)
[2021-12-16] MEDS: HEMOCYTE-PLUS PO SCH (08:00)
[2021-12-16] MEDS: INVanz INJ 1 GRAM VIAL 1 G in NS 100 ML IV 100 ML IV SCH (08:00)
[2021-12-16] MEDS: LEVAQUIN PREMIX IV 500 MG 500 MG/100 ML BAG IV SCH (18:06)
[2021-12-17] MEDS ORDERED: NS 1/2 1,000 ML IV 1,000 ML IV ONE ×3 (00:14→23:27)
[2021-12-17] MEDS: NS 1/2 1,000 ML IV 1,000 ML IV SCH ×5 (00:20→23:32)
[2021-12-17 05:23] LABS: BASOPHILS % (AUTO) 0.4 % (0.2-1.0); EOSINOPHILS # (AUTO) 0.1 x10^3/uL (0.0-0.2); EOSINOPHILS % (AUTO) 1.4 % (0.9-2.9); HEMATOCRIT 26.9 % (42.0-54.0); HEMOGLOBIN 8.7 g/dL (13.5-18.0); LYMPHOCYTES # (AUTO) 0.9 X10^3/uL (1.3-2.9); LYMPHOCYTES % (AUTO) 11.1 % (21.0-51.0); MEAN CORPUSCULAR HEMOGLOBIN 23.6 pg (27.0-34.0); MEAN CORPUSCULAR HGB CONC 32.2 g/dL (33.0-35.0); MEAN CORPUSCULAR VOLUME 73.3 fL (80.0-100.0); MONOCYTES # (AUTO) 1.2 x10^3/uL (0.3-0.8); MONOCYTES % (AUTO) 15.2 % (0.0-13.0); NEUTROPHILS # (AUTO) 5.5 x10^3/uL (2.2-4.8); NEUTROPHILS % (AUTO) 71.9 % (42.0-75.0); RED BLOOD COUNT 3.67 X10^6/uL (4.7-6.0); RED CELL DISTRIBUTION WIDTH 17.8 % (11.6-16.5); WHITE BLOOD COUNT 7.7 X10^3/uL (3.6-10.0)
[2021-12-17 06:03] LABS: ANISOCYTOSIS SLIGHT; HYPOCHROMASIA 1+; MICROCYTOSIS SLIGHT; PLATELET MORPHOLOGY COMMENT NORMAL (NORMAL)
[2021-12-17 07:23] LABS: ALANINE AMINOTRANSFERASE 39 Units/L (12-78); ALBUMIN 1.4 g/dL (3.4-5.0); ALKALINE PHOSPHATASE 169 Units/L (46-116); ASPARTATE AMINO TRANSFERASE 58 Units/L (15-37); BLOOD UREA NITROGEN 10 mg/dL (7-18); CALCIUM 7.9 mg/dL (8.5-10.1); CARBON DIOXIDE 27.5 mmol/L (21-32); CHLORIDE 105 mmol/L (98-107); CREATININE 0.45 mg/dL (0.70-1.30); SODIUM 140 mmol/L (136-145); TOTAL PROTEIN 5.1 g/dL (6.4-8.2); eGFR NON BLACK RACES > 60 (>60)
[2021-12-17] MEDS: INVanz INJ 1 GRAM VIAL 1 G in NS 100 ML IV 100 ML IV SCH (10:00)
[2021-12-17] MEDS: LEVAQUIN PREMIX IV 500 MG 500 MG/100 ML BAG IV SCH (10:00)
[2021-12-17] MEDS: HEMOCYTE-PLUS PO SCH (10:00)
[2021-12-17] MEDS ORDERED: NS 100 ML IV 100 ML ONE (11:09)
[2021-12-17] MEDS: PREVACID PO SCH (14:58)
[2021-12-17] MEDS: MAGNESIUM SULFATE 1 GRAM/100 mL PREMIX 1 G/100 ML BAG IV PRN ×2 (15:28→16:45)
[2021-12-18 05:09] LABS: BASOPHILS % (AUTO) 0.2 % (0.2-1.0); EOSINOPHILS # (AUTO) 0.1 x10^3/uL (0.0-0.2); EOSINOPHILS % (AUTO) 0.9 % (0.9-2.9); HEMATOCRIT 26.8 % (42.0-54.0); HEMOGLOBIN 8.6 g/dL (13.5-18.0); LYMPHOCYTES # (AUTO) 0.9 X10^3/uL (1.3-2.9); MEAN CORPUSCULAR HEMOGLOBIN 23.6 pg (27.0-34.0); MEAN CORPUSCULAR HGB CONC 31.9 g/dL (33.0-35.0); MEAN CORPUSCULAR VOLUME 73.9 fL (80.0-100.0); MEAN PLATELET VOLUME 7.6 fL (7.4-11.0); MONOCYTES # (AUTO) 1.3 x10^3/uL (0.3-0.8); MONOCYTES % (AUTO) 11.7 % (0.0-13.0); NEUTROPHILS # (AUTO) 8.6 x10^3/uL (2.2-4.8); NEUTROPHILS % (AUTO) 79.2 % (42.0-75.0); RED BLOOD COUNT 3.63 X10^6/uL (4.7-6.0); RED CELL DISTRIBUTION WIDTH 17.7 % (11.6-16.5); WHITE BLOOD COUNT 10.8 X10^3/uL (3.6-10.0)
[2021-12-18 05:21] LABS: ALANINE AMINOTRANSFERASE 38 Units/L (12-78); ALBUMIN 1.5 g/dL (3.4-5.0); ALKALINE PHOSPHATASE 174 Units/L (46-116); ASPARTATE AMINO TRANSFERASE 51 Units/L (15-37); BLOOD UREA NITROGEN 11 mg/dL (7-18); CALCIUM 7.9 mg/dL (8.5-10.1); CARBON DIOXIDE 26.7 mmol/L (21-32); CHLORIDE 105 mmol/L (98-107); COR CA(FOR HYPOALB) 9.9 mg/dL (8.5-10.1); MAGNESIUM 1.8 mg/dL (1.7-2.9); SODIUM 139 mmol/L (136-145); TOTAL PROTEIN 5.3 g/dL (6.4-8.2); eGFR NON BLACK RACES > 60 (>60)
[2021-12-18] MEDS: K-DUR TAB 20 MEQ PO PRN (05:29)
[2021-12-18] MEDS: NS 1/2 1,000 ML IV 1,000 ML IV SCH ×3 (05:30→21:29)
[2021-12-18 05:58] LABS: PLATELET MORPHOLOGY COMMENT NORMAL (NORMAL)
[2021-12-18 05:59] LABS: ANISOCYTOSIS SLIGHT; HYPOCHROMASIA SLIGHT; MICROCYTOSIS SLIGHT; TARGET CELLS SLIGHT
[2021-12-18] MEDS ORDERED: PROCRIT or EPOGEN VIAL 10,000 UNITS SC ONE (08:31)
[2021-12-18] MEDS: PREVACID PO SCH (09:10)
[2021-12-18] MEDS: INVanz INJ 1 GRAM VIAL 1 G in NS 100 ML IV 100 ML IV SCH (09:10)
[2021-12-18] MEDS: HEMOCYTE-PLUS PO SCH (09:10)
[2021-12-18] MEDS: LEVAQUIN PREMIX IV 500 MG 500 MG/100 ML BAG IV SCH (09:10)
[2021-12-18] MEDS ORDERED: NS 1/2 1,000 ML IV 1,000 ML IV ONE ×2 (09:14→20:47)
[2021-12-18] MEDS ORDERED: ZyPREXA TAB 5 MG ONE (09:14)
[2021-12-18] MEDS: ZyPREXA TAB 5 MG PO SCH ×2 (09:28→20:17)
[2021-12-19] MEDS: NS 1/2 1,000 ML IV 1,000 ML IV SCH ×5 (05:22→23:16)
[2021-12-19 05:27] LABS: BASOPHILS # (AUTO) 0.1 X10^3/uL (0.0-0.1); BASOPHILS % (AUTO) 0.7 % (0.2-1.0); EOSINOPHILS # (AUTO) 0.1 x10^3/uL (0.0-0.2); EOSINOPHILS % (AUTO) 1.3 % (0.9-2.9); HEMOGLOBIN 8.2 g/dL (13.5-18.0); LYMPHOCYTES % (AUTO) 9.9 % (21.0-51.0); MEAN CORPUSCULAR HEMOGLOBIN 24.1 pg (27.0-34.0); MEAN CORPUSCULAR HGB CONC 32.6 g/dL (33.0-35.0); MEAN CORPUSCULAR VOLUME 73.8 fL (80.0-100.0); MEAN PLATELET VOLUME 7.7 fL (7.4-11.0); MONOCYTES # (AUTO) 1.3 x10^3/uL (0.3-0.8); MONOCYTES % (AUTO) 12.6 % (0.0-13.0); NEUTROPHILS # (AUTO) 7.9 x10^3/uL (2.2-4.8); NEUTROPHILS % (AUTO) 75.5 % (42.0-75.0); RED BLOOD COUNT 3.39 X10^6/uL (4.7-6.0); RED CELL DISTRIBUTION WIDTH 17.9 % (11.6-16.5); WHITE BLOOD COUNT 10.4 X10^3/uL (3.6-10.0)
[2021-12-19 05:38] LABS: ALANINE AMINOTRANSFERASE 45 Units/L (12-78); ALBUMIN 1.4 g/dL (3.4-5.0); ALKALINE PHOSPHATASE 179 Units/L (46-116); ASPARTATE AMINO TRANSFERASE 65 Units/L (15-37); BLOOD UREA NITROGEN 13 mg/dL (7-18); CALCIUM 7.8 mg/dL (8.5-10.1); CARBON DIOXIDE 28.6 mmol/L (21-32); CHLORIDE 107 mmol/L (98-107); COR CA(FOR HYPOALB) 9.9 mg/dL (8.5-10.1); SODIUM 141 mmol/L (136-145); TOTAL PROTEIN 5.1 g/dL (6.4-8.2); eGFR NON BLACK RACES > 60 (>60)
[2021-12-19 05:58] LABS: ANISOCYTOSIS SLIGHT; HYPOCHROMASIA 1+; MICROCYTOSIS SLIGHT; PLATELET MORPHOLOGY COMMENT NORMAL (NORMAL)
[2021-12-19] MEDS: K-DUR TAB 20 MEQ PO PRN (05:59)
[2021-12-19] MEDS: INVanz INJ 1 GRAM VIAL 1 G in NS 100 ML IV 100 ML IV SCH (08:23)
[2021-12-19] MEDS: PREVACID PO SCH (08:23)
[2021-12-19] MEDS: HEMOCYTE-PLUS PO SCH (08:23)
[2021-12-19] MEDS: LEVAQUIN PREMIX IV 500 MG 500 MG/100 ML BAG IV SCH (08:24)
[2021-12-19] MEDS: ZyPREXA TAB 5 MG PO SCH ×2 (08:24→20:49)
[2021-12-19] MEDS ORDERED: PHARMACY CONSULT - VANCOMYCIN XX SCH (10:00)
[2021-12-19] MEDS ORDERED: LOPRESSOR TAB 50 MG ONE (13:13)
[2021-12-19] MEDS: LOPRESSOR TAB 50 MG PO ONE ×2 (13:14→14:30)
[2021-12-19] MEDS: VANCOMYCIN IV *PREMIX 1 G/200 ML BAG 1 G/200 ML PIGGYBACK IV SCH ×2 (14:30→21:05)
[2021-12-19] MEDS: GENTAMICIN INJ 120 MG in NS 100 ML IV 100 ML IV SCH (16:32)
[2021-12-19] MEDS: LOPRESSOR TAB 50 MG PO SCH (20:49)
[2021-12-19] MEDS ORDERED: NS 1/2 1,000 ML IV 1,000 ML IV ONE (22:38)
[2021-12-20] MEDS: GENTAMICIN INJ 120 MG in NS 100 ML IV 100 ML IV SCH ×3 (03:26→21:44)
[2021-12-20] MEDS: VANCOMYCIN IV *PREMIX 1 G/200 ML BAG 1 G/200 ML PIGGYBACK IV SCH ×3 (05:13→21:58)
[2021-12-20] MEDS: NS 1/2 1,000 ML IV 1,000 ML IV SCH ×2 (05:13→13:36)
[2021-12-20 05:26] LABS: BASOPHILS # (AUTO) 0.1 X10^3/uL (0.0-0.1); EOSINOPHILS # (AUTO) 0.2 x10^3/uL (0.0-0.2); EOSINOPHILS % (AUTO) 1.5 % (0.9-2.9); HEMATOCRIT 25.3 % (42.0-54.0); HEMOGLOBIN 8.2 g/dL (13.5-18.0); LYMPHOCYTES % (AUTO) 9.1 % (21.0-51.0); MEAN CORPUSCULAR HEMOGLOBIN 23.9 pg (27.0-34.0); MEAN CORPUSCULAR HGB CONC 32.5 g/dL (33.0-35.0); MEAN CORPUSCULAR VOLUME 73.7 fL (80.0-100.0); MEAN PLATELET VOLUME 7.7 fL (7.4-11.0); MONOCYTES # (AUTO) 1.3 x10^3/uL (0.3-0.8); NEUTROPHILS # (AUTO) 8.9 x10^3/uL (2.2-4.8); NEUTROPHILS % (AUTO) 77.4 % (42.0-75.0); RED BLOOD COUNT 3.43 X10^6/uL (4.7-6.0); WHITE BLOOD COUNT 11.5 X10^3/uL (3.6-10.0)
[2021-12-20 05:36] LABS: ALANINE AMINOTRANSFERASE 47 Units/L (12-78); ALBUMIN 1.5 g/dL (3.4-5.0); ALKALINE PHOSPHATASE 200 Units/L (46-116); ASPARTATE AMINO TRANSFERASE 57 Units/L (15-37); BLOOD UREA NITROGEN 12 mg/dL (7-18); CALCIUM 7.8 mg/dL (8.5-10.1); CARBON DIOXIDE 26.4 mmol/L (21-32); CHLORIDE 105 mmol/L (98-107); COR CA(FOR HYPOALB) 9.8 mg/dL (8.5-10.1); CREATININE 0.41 mg/dL (0.70-1.30); SODIUM 141 mmol/L (136-145); TOTAL PROTEIN 5.4 g/dL (6.4-8.2); eGFR NON BLACK RACES > 60 (>60)
[2021-12-20 06:00] LABS: ANISOCYTOSIS SLIGHT; HYPOCHROMASIA 1+; MICROCYTOSIS SLIGHT; PLATELET MORPHOLOGY COMMENT NORMAL (NORMAL)
[2021-12-20 06:01] LABS: TARGET CELLS SLIGHT
[2021-12-20] MEDS: MAGNESIUM SULFATE 1 GRAM/100 mL PREMIX 1 G/100 ML BAG IV PRN ×2 (10:22→17:57)
[2021-12-20] MEDS: HEMOCYTE-PLUS PO SCH (10:25)
[2021-12-20] MEDS: ZyPREXA TAB 5 MG PO SCH ×2 (10:26→21:45)
[2021-12-20] MEDS: PREVACID PO SCH (10:26)
[2021-12-20] MEDS: LOPRESSOR TAB 50 MG PO SCH ×2 (10:51→23:02)
--- NOTE | 2021-12-20 11:37 | RAD ---
HISTORYPain edemaSTUDYLeft humerus two viewsCOMPARISONNoneFINDINGSAcute fracture involving the proximal metaphysis of the humerus with marked anterior displacement of the distal humeral fragment. Fracture fragments are overriding and displaced. There is a linear calcification adjacent to the upper surface of the acromion, possibly nonacute.IMPRESSIONAcute deforming and displaced fracture proximal left humerus.Electronically signed by: ADRIA COOK (Dec 20, 2021 11:35:25)
[2021-12-20] MEDS ORDERED: NS 1/2 1,000 ML IV 1,000 ML IV ONE (12:31)
[2021-12-20] MEDS ORDERED: PHARMACY COMMENT IV ONE (13:30)
[2021-12-20 14:23] LABS: CREATININE 0.46 mg/dL (0.70-1.30); VANCOMYCIN,TROUGH 14.1 ug/mL (15-20)
[2021-12-20] MEDS ORDERED: HYDROGEN PEROXIDE 3% ONE (17:29)
[2021-12-20] MEDS ORDERED: BACITRACIN ZINC ONE (19:12)
[2021-12-20] MEDS ORDERED: BACITRACIN ZINC TOP ONE (21:00)
[2021-12-21] MEDS ORDERED: NS 1/2 1,000 ML IV 1,000 ML IV ONE ×2 (00:03→20:18)
[2021-12-21] MEDS: NS 1/2 1,000 ML IV 1,000 ML IV SCH ×5 (02:06→21:26)
[2021-12-21 05:28] LABS: BASOPHILS # (AUTO) 0.1 X10^3/uL (0.0-0.1); BASOPHILS % (AUTO) 1.1 % (0.2-1.0); EOSINOPHILS # (AUTO) 0.2 x10^3/uL (0.0-0.2); EOSINOPHILS % (AUTO) 1.7 % (0.9-2.9); HEMATOCRIT 24.3 % (42.0-54.0); HEMOGLOBIN 7.8 g/dL (13.5-18.0); LYMPHOCYTES % (AUTO) 8.8 % (21.0-51.0); MEAN CORPUSCULAR HEMOGLOBIN 23.6 pg (27.0-34.0); MEAN CORPUSCULAR HGB CONC 32.2 g/dL (33.0-35.0); MEAN CORPUSCULAR VOLUME 73.3 fL (80.0-100.0); MEAN PLATELET VOLUME 7.5 fL (7.4-11.0); MONOCYTES # (AUTO) 1.3 x10^3/uL (0.3-0.8); MONOCYTES % (AUTO) 11.1 % (0.0-13.0); NEUTROPHILS % (AUTO) 77.3 % (42.0-75.0); RED BLOOD COUNT 3.31 X10^6/uL (4.7-6.0); RED CELL DISTRIBUTION WIDTH 17.9 % (11.6-16.5); WHITE BLOOD COUNT 11.7 X10^3/uL (3.6-10.0)
[2021-12-21 05:40] LABS: ANISOCYTOSIS SLIGHT; HYPOCHROMASIA 1+; MICROCYTOSIS SLIGHT; PLATELET MORPHOLOGY COMMENT NORMAL (NORMAL); TARGET CELLS SLIGHT
[2021-12-21 05:41] LABS: ALANINE AMINOTRANSFERASE 47 Units/L (12-78); ALBUMIN 1.4 g/dL (3.4-5.0); ALKALINE PHOSPHATASE 208 Units/L (46-116); ASPARTATE AMINO TRANSFERASE 51 Units/L (15-37); BLOOD UREA NITROGEN 12 mg/dL (7-18); CALCIUM 7.8 mg/dL (8.5-10.1); CHLORIDE 107 mmol/L (98-107); COR CA(FOR HYPOALB) 9.9 mg/dL (8.5-10.1); CREATININE 0.37 mg/dL (0.70-1.30); MAGNESIUM 1.8 mg/dL (1.7-2.9); SODIUM 141 mmol/L (136-145); TOTAL PROTEIN 5.4 g/dL (6.4-8.2); eGFR NON BLACK RACES > 60 (>60)
[2021-12-21] MEDS ORDERED: PHARMACY COMMENT IV ONE ×2 (08:30→10:00)
[2021-12-21] MEDS: VANCOMYCIN IV *PREMIX 1 G/200 ML BAG 1 G/200 ML PIGGYBACK IV SCH ×2 (08:30→21:28)
[2021-12-21] MEDS: TYLENOL 325 MG TAB PO PRN (09:40)
[2021-12-21] MEDS: TENORMIN PO SCH (09:50)
[2021-12-21] MEDS: PREVACID PO SCH (09:50)
[2021-12-21] MEDS: KLOR-CON PO PRN (09:50)
[2021-12-21] MEDS: HEMOCYTE-PLUS PO SCH (09:50)
[2021-12-21] MEDS: ZyPREXA TAB 5 MG PO SCH ×2 (09:50→21:29)
[2021-12-21] MEDS: K-DUR TAB 20 MEQ PO PRN (10:26)
[2021-12-21 11:09] LABS: CREATININE 0.45 mg/dL (0.70-1.30); GENTAMICIN,TROUGH 1.6 ug/mL (0-1.9)
--- NOTE | 2021-12-21 11:54 | PCM.PROG ---
Progress Note - Progress Note for Day of Date of Exam: 12/21/21 - Subjective Subjective: He is a 66-year-old white male being treated for sepsis and bacteremia. The patient is currently on gentamycin and vancomycin Systolics have remained in the 90s. The patient has definitely become more awake and alert and more talkative since admission. We reviewed diagnostic tests and lab s. His white count was at 11.7. Hemoglobin is at 7.8. His renal function is stable with a BUN of 12 and creatinine of 0.37. The patient does have an indwelling Hess catheter. The patient denied any chest pain or shortness of breath. Pt has left humerus fracture and has refused to wear immobilizer or arm sling. Repeat xray ordered for this morning. Pt was started on zyprexa bid over the weekend and tolerating well. Plan to consult ortho if patient will agree at this time. Pt is also refusing lopressor that was started over the weekend for tachycardia. Pt reports he took atenolol at home and would agree to restart that. - Past Medical Family Social History Past Med/Fam/Surg Hx: No changes since H&P Allergies: Allergies diphenhydramine [From Benadryl] Allergy (Verified 10/14/18 22:08) guaifenesin [From Robitussin] Allergy (Verified 10/14/18 22:08) haloperidol [From Haldol] Allergy (Verified 10/14/18 22:08) meperidine [From Demerol] Allergy (Verified 10/14/18 22:08) phenobarbital Allergy (Verified 10/14/18 22:08) Sulfa (Sulfonamide Antibiotics) [SULFA] Allergy (Verified 10/14/18 22:08) - Review of Systems ROS: No change since H&P - Vital Signs and I&O's Vital Signs: Temperature 97.8 F Pulse Rate 101 Respiratory Rate 23 Blood Pressure [Right Arm] 153/96 Blood Pressure 108/70 O2 Sat by Pulse Oximetry 100 Intake and Output: Intake & Output 12/18/21 12/19/21 12/20/21 12/21/21 11:59 11:59 11:59 11:59 Intake Total 1834 / 1834 3954 / 3954 4088 / 4088 4200 / 4200 Output Total 3850 / 3850 3425 / 3425 4900 / 4900 4400 / 4400 Balance -2015 / 529 / 529 -812 / -812 -200 / -200 - Physical Exam Oriented: Normal Eyes: Normal Ear: Normal Throat: Normal Respiratory: Diminished Cardiovascular: Tachycardia : Normal Auscultation: Bowel Sounds: Normal Tenderness: Normal Skin: Decreased Turgur, Wound Musculoskeletal: Left, Shoulder, Swelling, Tender, Deformity Psychiatric: Anxiety Mood Description: Anxious Affect: Anxious Speech Pattern: Clear, Excessive - Laboratory and Diagnostics Result Diagrams: 12/21/21 04:57 12/21/21 04:57 Labs: 12/13/21 18:30 Blood Blood Culture - Final 12/13/21 18:45 Blood Blood Culture - Final Staphylococcus Epidermidis 12/12/21 13:15 Chest Wound Gram Stain - Final 12/12/21 13:15 Chest Wound Culture - Final Proteus Mirabilis 12/12/21 13:15 Knee - Right Wound Gram Stain - Final 12/12/21 13:15 Knee - Right Wound Culture - Final Proteus Mirabilis Klebsiella Pneumoniae 12/11/21 11:19 Blood Blood Culture - Final Klebsiella Pneumoniae Proteus Mirabilis 12/11/21 10:35 Blood Blood Culture - Final Staphylococcus Epidermidis 12/12/21 13:15 Hip - Left Wound Gram Stain - Final 12/12/21 13:15 Hip - Left Wound Culture - Final Proteus Mirabilis Klebsiella Pneumoniae 12/12/21 13:15 Urine,Clean Catch Urine Culture - Final Klebsiella Pneumoniae Laboratory WBC 11.7 X10^3/uL (3.6-10.0) H 12/21/21 04:57 RBC 3.31 X10^6/uL (4.7-6.0) L 12/21/21 04:57 Hgb 7.8 g/dL (13.5-18.0) L 12/21/21 04:57 Hct 24.3 % (42.0-54.0) L 12/21/21 04:57 MCV 73.3 fL (80.0-100.0) L 12/21/21 04:57 MCH 23.6 pg (27.0-34.0) L 12/21/21 04:57 MCHC 32.2 g/dL (33.0-35.0) L 12/21/21 04:57 RDW 17.9 % (11.6-16.5) H 12/21/21 04:57 Plt Count 368 X10^3/uL (150.0-450.0) 12/21/21 04:57 Plt Count Comment Adequate (ADEQUATE) 12/21/21 04:57 MPV 7.5 fL (7.4-11.0) 12/21/21 04:57 Neut % (Auto) 77.3 % (42.0-75.0) H 12/21/21 04:57 Lymph % (Auto) 8.8 % (21.0-51.0) L 12/21/21 04:57 [place] % (Auto) 11.1 % (0.0-13.0) 12/21/21 04:57 Eos % (Auto) 1.7 % (0.9-2.9) 12/21/21 04:57 Baso % (Auto) 1.1 % (0.2-1.0) H 12/21/21 04:57 Neut # (Auto) 9.0 x10^3/uL (2.2-4.8) H 12/21/21 04:57 Lymph # (Auto) 1.0 X10^3/uL (1.3-2.9) L 12/21/21 04:57 [place] # (Auto) 1.3 x10^3/uL (0.3-0.8) H 12/21/21 04:57 Eos # (Auto) 0.2 x10^3/uL (0.0-0.2) 12/21/21 04:57 Baso # (Auto) 0.1 X10^3/uL (0.0-0.1) 12/21/21 04:57 Absolute Nucleated RBC 0.0 /100WBC 12/21/21 04:57 Total Counted 100 12/11/21 17:25 Neutrophils % (Manual) 93 % (39-76) H 12/11/21 17:25 Lymphocytes % (Manual) 3 % (13-43) L 12/11/21 17:25 Monocytes % (Manual) 4 % (4-9) 12/11/21 17:25 Plt Morphology Comment Normal (NORMAL) 12/21/21 04:57 RBC Morphology Abnormal (NORMAL) 12/21/21 04:57 Hypochromasia 1+ A 12/21/21 04:57 Anisocytosis Slight A 12/21/21 04:57 Microcytosis Slight A 12/21/21 04:57 Target Cells Slight A 12/21/21 04:57 PT 19.3 SECONDS (11.8-14.3) 12/11/21 17:25 INR Target Range - 12/11/21 17:25 INR 1.69 (0.8-1.3) H 12/11/21 17:25 APTT 43.1 SECONDS (22.9-36.5) H 12/11/21 17:25 PTT Comment - 12/11/21 17:25 D-Dimer 1.53 ug/ml (0.0-0.57) H 12/11/21 11:19 Sample Site Rrad 12/11/21 10:15 ABG pH 7.440 (7.35-7.45) 12/11/21 10:15 ABG pCO2 40.0 mmHg (35.0-45.0) 12/11/21 10:15 ABG pO2 158.0 mmHg (80.0-100.0) H 12/11/21 10:15 ABG HCO3 27.2 mmol/L (22-26) H 12/11/21 10:15 ABG O2 Saturation 99.0 % (90-100) 12/11/21 10:15 ABG Base Excess 2.8 mmol/L (-2.0-2.0) H 12/11/21 10:15 Mendoza Test Pos 12/11/21 10:15 A-a Gradient -58.0 mmHg 12/11/21 10:15 FiO2 21.0 12/11/21 10:15 Blood Gas Comments Pt jennifer well elj cdn 12/11/21 10:15 Sodium 141 mmol/L (136-145) 12/21/21 04:57 Corrected Sodium TNP 12/21/21 04:57 Potassium 3.8 mmol/L (3.5-5.1) 12/21/21 04:57 Chloride 107 mmol/L (98-107) 12/21/21 04:57 Carbon Dioxide 27.0 mmol/L (21-32) 12/21/21 04:57 BUN 12 mg/dL (7-18) 12/21/21 04:57 Creatinine 0.37 mg/dL (0.70-1.30) L 12/21/21 04:57 Est GFR (MDRD) Af Amer > 60 (>60) 12/21/21 04:57 Est GFR (MDRD) Non-Af > 60 (>60) 12/21/21 04:57 Glucose 97 mg/dL (65-99) 12/21/21 04:57 POC Glucose (mg/dL) 89 mg/dL (65-99) 12/18/21 06:01 Lactic Acid 1.7 mmol/L (0.4-2.0) 12/11/21 17:25 Calcium 7.8 mg/dL (8.5-10.1) L 12/21/21 04:57 Corrected Calcium 9.9 mg/dL (8.5-10.1) 12/21/21 04:57 Magnesium 1.8 mg/dL (1.7-2.9) 12/21/21 04:57 Iron 20 ug/dL (50-175) L 12/12/21 04:25 Transferrin 102 mg/dL (202-364) L 12/12/21 04:25 Ferritin 3750 ng/mL (26-388) H 12/12/21 04:25 Total Bilirubin 0.20 mg/dL (0.2-1.0) 12/21/21 04:57 AST 51 Units/L (15-37) H 12/21/21 04:57 ALT 47 Units/L (12-78) 12/21/21 04:57 Alkaline Phosphatase 208 Units/L (46-116) H 12/21/21 04:57 Creatine Kinase 147 Units/L (39-308) 12/11/21 17:25 Troponin I High Sens 13.1 ng/L (4.0-60.0) 12/11/21 17:25 Total Protein 5.4 g/dL (6.4-8.2) L 12/21/21 04:57 Albumin 1.4 g/dL (3.4-5.0) L 12/21/21 04:57 Globulin 4.0 g/dL (2.5-4.5) 12/21/21 04:57 Albumin/Globulin Ratio 0.4 Ratio (1.1-2.1) L 12/21/21 04:57 Triglycerides 82 mg/dL (0-150) 12/13/21 04:20 Cholesterol 90 mg/dL (0-200) 12/13/21 04:20 LDL Cholesterol, Calc 53 mg/dL (0-100) 12/13/21 04:20 HDL Cholesterol 21 mg/dL (40-60) L 12/13/21 04:20 Cholesterol/HDL Ratio 4.3 (0.0-5.0) 12/13/21 04:20 Total PSA 1.13 ng/mL (0.13-4.0) 12/13/21 04:20 Vitamin B12 1439 pg/mL (193-986) H 12/12/21 04:25 Folate 2.1 ng/mL (>8.6) L 12/12/21 04:25 Free T4 1.06 ng/dL (0.76-1.46) 12/12/21 04:25 TSH 3rd Generation 2.724 uIU/mL (0.358-3.74) 12/12/21 04:25 Specimen Type Catherized urine 12/11/21 10:25 Urine Color Cathi (YELLOW) 12/11/21 10:25 Urine Appearance Slightly hazy (CLEAR) 12/11/21 10:25 Urine pH 6.0 (5.0 - 8.0) 12/11/21 10:25 Ur Specific [place] 1.025 (1.000-1.030) 12/11/21 10:25 Urine Protein 1+ (NEGATIVE) 12/11/21 10:25 Urine Glucose (UA) Negative (NEGATIVE) 12/11/21 10:25 Urine Ketones Negative (NEGATIVE) 12/11/21 10:25 Urine Blood 3+ (NEGATIVE) 12/11/21 10:25 Urine Nitrite Negative (NEGATIVE) 12/11/21 10:25 Urine Bilirubin 1+ (NEGATIVE) 12/11/21 10:25 Urine Urobilinogen 2+ (NORMAL) 12/11/21 10:25 Ur Leukocyte Esterase 1+ (NEGATIVE) 12/11/21 10:25 Urine RBC 5-10 /HPF (0-3) A 12/11/21 10:25 Urine WBC 3-5 /HPF (0-5) 12/11/21 10:25 Ur Squamous Epith Cells Negative /HPF (NEGATIVE) 12/11/21 10:25 Calcium Oxalate Crystal Rare /HPF (NEGATIVE) 12/11/21 10:25 Amorphous Sediment Trace /HPF (NEGATIVE) 12/11/21 10:25 Urine Bacteria Trace /HPF (NEGATIVE) 12/11/21 10:25 Hyaline Casts Rare /LPF (NEGATIVE) 12/11/21 10:25 Ur Culture Indicated? No/not indicated 12/11/21 10:25 Stool Description 100g brn lqd 12/13/21 10:10 Stl Occult Blood (IFOB) Positive (NEGATIVE) A 12/13/21 10:10 Vancomycin Trough 14.1 ug/mL (15-20) L 12/20/21 13:40 Urine Opiates Screen TNP 12/11/21 10:25 Urine Methadone Screen Negative (NEG=<300) 12/11/21 10:25 Ur Barbiturates Screen Negative (NEG=<200) 12/11/21 10:25 Ur Phencyclidine Scrn Negative (NEG=<25) 12/11/21 10:25 Ur Amphetamines Screen Negative (NEG=<1000) 12/11/21 10:25 U Benzodiazepines Scrn Negative (NEG=<200) 12/11/21 10:25 Urine Cocaine Screen Negative (NEG=<300) 12/11/21 10:25 U Marijuana (THC) Screen Negative (NEG=<50) 12/11/21 10:25 SARS-CoV-2 (PCR) Negative (NEGATIVE) 12/11/21 11:00 - Plan (1) Bacteremia Status: Acute Plan: IV ANTIBIOTICS, BP AND CARDIAC MONITORING. IV HYDRATION, WOUND CARE. PT/OT, PAIN CONTROL. STRICT I&OS, PRN SUPPLEMENTAL O2 (2) Pressure ulcer Status: Acute (3) Left humeral fracture Status: Acute (4) UTI (urinary tract infection) Status: Acute (5) Sepsis Status: Acute
[2021-12-21] MEDS: GENTAMICIN INJ 120 MG in NS 100 ML IV 100 ML IV SCH (12:12)
[2021-12-21 14:40] LABS: CREATININE 0.49 mg/dL (0.70-1.30); VANCOMYCIN,TROUGH 19.8 ug/mL (15-20)
[2021-12-21] MEDS ORDERED: INVanz INJ 1 GRAM VIAL 1 G in NS 100 ML IV 100 ML IV SCH (14:44)
[2021-12-21] MEDS: MAGNESIUM SULFATE 1 GRAM/100 mL PREMIX 1 G/100 ML BAG IV PRN ×3 (16:45→21:00)
[2021-12-21] MEDS ORDERED: MAGNESIUM SULFATE 1 GRAM/100 mL PREMIX 1 G/100 ML BAG IV ONE (18:11)
[2021-12-21] MEDS: LEVAQUIN PREMIX IV 500 MG 500 MG/100 ML BAG IV SCH (21:27)
[2021-12-21] MEDS: INVanz INJ 1 GRAM VIAL 1 G in NS 100 ML IV 100 ML IV SCH (21:28)
[2021-12-22 05:15] LABS: BASOPHILS % (AUTO) 0.4 % (0.2-1.0); EOSINOPHILS # (AUTO) 0.3 x10^3/uL (0.0-0.2); EOSINOPHILS % (AUTO) 2.4 % (0.9-2.9); HEMATOCRIT 24.1 % (42.0-54.0); HEMOGLOBIN 7.7 g/dL (13.5-18.0); LYMPHOCYTES # (AUTO) 0.4 X10^3/uL (1.3-2.9); LYMPHOCYTES % (AUTO) 3.4 % (21.0-51.0); MEAN CORPUSCULAR HEMOGLOBIN 23.5 pg (27.0-34.0); MEAN CORPUSCULAR HGB CONC 31.9 g/dL (33.0-35.0); MEAN CORPUSCULAR VOLUME 73.5 fL (80.0-100.0); MEAN PLATELET VOLUME 7.4 fL (7.4-11.0); MONOCYTES # (AUTO) 0.9 x10^3/uL (0.3-0.8); NEUTROPHILS # (AUTO) 9.6 x10^3/uL (2.2-4.8); NEUTROPHILS % (AUTO) 85.8 % (42.0-75.0); RED BLOOD COUNT 3.28 X10^6/uL (4.7-6.0); RED CELL DISTRIBUTION WIDTH 17.5 % (11.6-16.5); WHITE BLOOD COUNT 11.1 X10^3/uL (3.6-10.0)
[2021-12-22 05:26] LABS: ALANINE AMINOTRANSFERASE 47 Units/L (12-78); ALBUMIN 1.4 g/dL (3.4-5.0); ALKALINE PHOSPHATASE 209 Units/L (46-116); ASPARTATE AMINO TRANSFERASE 53 Units/L (15-37); BLOOD UREA NITROGEN 12 mg/dL (7-18); CALCIUM 7.6 mg/dL (8.5-10.1); CARBON DIOXIDE 27.6 mmol/L (21-32); CHLORIDE 106 mmol/L (98-107); COR CA(FOR HYPOALB) 9.7 mg/dL (8.5-10.1); CREATININE 0.56 mg/dL (0.70-1.30); MAGNESIUM 1.9 mg/dL (1.7-2.9); SODIUM 141 mmol/L (136-145); TOTAL PROTEIN 5.4 g/dL (6.4-8.2); eGFR NON BLACK RACES > 60 (>60)
[2021-12-22 05:39] LABS: ANISOCYTOSIS SLIGHT; BAND NEUTROPHILS % 1 % (0-10); HYPOCHROMASIA 1+; MICROCYTOSIS SLIGHT; PLATELET MORPHOLOGY COMMENT NORMAL (NORMAL); TARGET CELLS 1+
[2021-12-22] MEDS: NS 1/2 1,000 ML IV 1,000 ML IV SCH ×3 (07:20→21:29)
[2021-12-22] MEDS: INVanz INJ 1 GRAM VIAL 1 G in NS 100 ML IV 100 ML IV SCH (09:29)
[2021-12-22] MEDS: LEVAQUIN PREMIX IV 500 MG 500 MG/100 ML BAG IV SCH (09:29)
[2021-12-22] MEDS: ZyPREXA TAB 5 MG PO SCH ×2 (09:30→20:13)
[2021-12-22] MEDS: HEMOCYTE-PLUS PO SCH ×2 (10:16→15:32)
[2021-12-22] MEDS: PREVACID PO SCH (10:16)
[2021-12-22] MEDS: TENORMIN PO SCH ×2 (10:17→15:32)
[2021-12-22] MEDS: MAGNESIUM SULFATE 1 GRAM/100 mL PREMIX 1 G/100 ML BAG IV PRN ×2 (12:30→14:00)
--- NOTE | 2021-12-22 13:15 | CT ---
CT left humerus without contrastIndication: FractureCOMPARISONAugust 2021 radiographTECHNIQUEHelical images through the left humerus without contrast. Coronal and sagittal reformats provided.FINDINGSPartially visualized hardware is seen in left radius. Glenohumeral joint DJD noted. Mild AC joint DJD noted.There is comminuted fracture with amorphous calcific density seen on axial images 54-40 around the fracture site. Lucency in the medullary cavity, and a moth-eaten appearance to the cortex of the bone adjacent to the fracture site seen on axial image 53 and axial image 39 is noted. This is highly concerning for pathologic fracture and underlying lesion. The distal humeral shaft is displaced 1.5 shaft with anteriorly, with posterior angulation noted. Soft tissue swelling around the fracture site is noted, with amorphous calcifications, possibly healing callus/heterotopic calcification. Calcifications within a pre-existing mass are not excluded.IMPRESSION1. Comminuted angulated and displaced proximal humeral diaphysis fracture, probably pathologic2. There is lucency at the fracture site and a moth-eaten appearance to the cortex just above and below the fracture, with amorphous calcifications suggesting periosteal reaction versus healing callus/heterotopic calcification. Underlying mass presumed. Surgical consultation recommended. MR follow-up recommended, preferably with and without contrast.3. Prominent heart size and left effusion likely.Electronically signed by: JOHN LUI (Dec 22, 2021 13:13:22)
[2021-12-22] MEDS ORDERED: NS 1/2 1,000 ML IV 1,000 ML IV ONE (13:16)
[2021-12-22] MEDS: SENOKOT PO PRN (15:33)
[2021-12-22 18:29] LABS: HEMATOCRIT 27.3 % (42.0-54.0); HEMOGLOBIN 8.6 g/dL (13.5-18.0)
[2021-12-22] MEDS: TYLENOL 325 MG TAB PO PRN (21:03)
[2021-12-23] MEDS: NS 1/2 1,000 ML IV 1,000 ML IV SCH ×4 (05:02→21:00)
[2021-12-23 06:30] LABS: BASOPHILS # (AUTO) 0.1 X10^3/uL (0.0-0.1); BASOPHILS % (AUTO) 0.9 % (0.2-1.0); EOSINOPHILS # (AUTO) 0.1 x10^3/uL (0.0-0.2); LYMPHOCYTES # (AUTO) 0.7 X10^3/uL (1.3-2.9); LYMPHOCYTES % (AUTO) 7.7 % (21.0-51.0); MEAN CORPUSCULAR HEMOGLOBIN 23.9 pg (27.0-34.0); MEAN CORPUSCULAR HGB CONC 32.2 g/dL (33.0-35.0); MEAN CORPUSCULAR VOLUME 74.2 fL (80.0-100.0); MEAN PLATELET VOLUME 7.7 fL (7.4-11.0); MONOCYTES # (AUTO) 0.9 x10^3/uL (0.3-0.8); MONOCYTES % (AUTO) 9.5 % (0.0-13.0); NEUTROPHILS # (AUTO) 7.9 x10^3/uL (2.2-4.8); NEUTROPHILS % (AUTO) 80.9 % (42.0-75.0); RED BLOOD COUNT 3.36 X10^6/uL (4.7-6.0); WHITE BLOOD COUNT 9.7 X10^3/uL (3.6-10.0)
[2021-12-23 06:44] LABS: ALANINE AMINOTRANSFERASE 41 Units/L (12-78); ALBUMIN 1.5 g/dL (3.4-5.0); ALKALINE PHOSPHATASE 215 Units/L (46-116); ASPARTATE AMINO TRANSFERASE 36 Units/L (15-37); BLOOD UREA NITROGEN 11 mg/dL (7-18); CARBON DIOXIDE 27.5 mmol/L (21-32); CHLORIDE 105 mmol/L (98-107); CREATININE 0.45 mg/dL (0.70-1.30); SODIUM 139 mmol/L (136-145); TOTAL PROTEIN 5.7 g/dL (6.4-8.2); eGFR NON BLACK RACES > 60 (>60)
[2021-12-23 06:53] LABS: ANISOCYTOSIS SLIGHT; HYPOCHROMASIA 1+; PLATELET MORPHOLOGY COMMENT NORMAL (NORMAL)
[2021-12-23 06:54] LABS: MICROCYTOSIS SLIGHT; TARGET CELLS SLIGHT
[2021-12-23] MEDS: ZyPREXA TAB 5 MG PO SCH ×2 (08:38→20:58)
[2021-12-23] MEDS: INVanz INJ 1 GRAM VIAL 1 G in NS 100 ML IV 100 ML IV SCH (08:39)
[2021-12-23] MEDS: SENOKOT PO PRN (08:41)
[2021-12-23] MEDS: TENORMIN PO SCH (08:41)
[2021-12-23] MEDS: PREVACID PO SCH (08:41)
[2021-12-23] MEDS: HEMOCYTE-PLUS PO SCH (08:41)
[2021-12-23] MEDS ORDERED: PROCTOZONE HC CRM 2.5% (ANUSOL-HC) TOP PRN (08:59)
[2021-12-23] MEDS ORDERED: ZOFRAN TAB 4 MG PO PRN (08:59)
[2021-12-23] MEDS: LEVAQUIN PREMIX IV 500 MG 500 MG/100 ML BAG IV SCH (09:09)
[2021-12-23] MEDS: TYLENOL 325 MG TAB PO PRN ×2 (11:03→20:58)
[2021-12-23] MEDS ORDERED: NS 1/2 1,000 ML IV 1,000 ML IV ONE (17:06)
[2021-12-24 06:09] LABS: BASOPHILS # (AUTO) 0.1 X10^3/uL (0.0-0.1); BASOPHILS % (AUTO) 0.9 % (0.2-1.0); EOSINOPHILS # (AUTO) 0.1 x10^3/uL (0.0-0.2); EOSINOPHILS % (AUTO) 1.4 % (0.9-2.9); HEMATOCRIT 24.1 % (42.0-54.0); HEMOGLOBIN 7.8 g/dL (13.5-18.0); LYMPHOCYTES % (AUTO) 9.5 % (21.0-51.0); MEAN CORPUSCULAR HEMOGLOBIN 23.7 pg (27.0-34.0); MEAN CORPUSCULAR HGB CONC 32.2 g/dL (33.0-35.0); MEAN CORPUSCULAR VOLUME 73.4 fL (80.0-100.0); MEAN PLATELET VOLUME 7.4 fL (7.4-11.0); MONOCYTES # (AUTO) 0.9 x10^3/uL (0.3-0.8); MONOCYTES % (AUTO) 9.1 % (0.0-13.0); NEUTROPHILS # (AUTO) 8.1 x10^3/uL (2.2-4.8); NEUTROPHILS % (AUTO) 79.1 % (42.0-75.0); RED BLOOD COUNT 3.28 X10^6/uL (4.7-6.0); RED CELL DISTRIBUTION WIDTH 17.4 % (11.6-16.5); WHITE BLOOD COUNT 10.2 X10^3/uL (3.6-10.0)
[2021-12-24] MEDS: NS 1/2 1,000 ML IV 1,000 ML IV SCH ×3 (06:09→13:54)
[2021-12-24 06:16] LABS: ALANINE AMINOTRANSFERASE 36 Units/L (12-78); ALBUMIN 1.5 g/dL (3.4-5.0); ALKALINE PHOSPHATASE 207 Units/L (46-116); ASPARTATE AMINO TRANSFERASE 29 Units/L (15-37); BLOOD UREA NITROGEN 13 mg/dL (7-18); CALCIUM 7.8 mg/dL (8.5-10.1); CARBON DIOXIDE 28.1 mmol/L (21-32); CHLORIDE 104 mmol/L (98-107); COR CA(FOR HYPOALB) 9.8 mg/dL (8.5-10.1); CREATININE 0.43 mg/dL (0.70-1.30); SODIUM 139 mmol/L (136-145); TOTAL PROTEIN 5.5 g/dL (6.4-8.2); eGFR NON BLACK RACES > 60 (>60)
[2021-12-24 06:33] LABS: ANISOCYTOSIS SLIGHT; MICROCYTOSIS SLIGHT; PLATELET MORPHOLOGY COMMENT NORMAL (NORMAL); TARGET CELLS FEW
[2021-12-24] MEDS: INVanz INJ 1 GRAM VIAL 1 G in NS 100 ML IV 100 ML IV SCH (09:45)
[2021-12-24] MEDS: LEVAQUIN PREMIX IV 500 MG 500 MG/100 ML BAG IV SCH (09:45)
[2021-12-24] MEDS: PREVACID PO SCH (09:45)
[2021-12-24] MEDS: HEMOCYTE-PLUS PO SCH (09:45)
[2021-12-24] MEDS: TENORMIN PO SCH (09:46)
[2021-12-24] MEDS: ZyPREXA TAB 5 MG PO SCH (09:46)
[2021-12-24] MEDS ORDERED: NS 1/2 1,000 ML IV 1,000 ML IV ONE (09:48)
[2021-12-24] MEDS: TYLENOL 325 MG TAB PO PRN (09:50)
[2021-12-24] MEDS: SENOKOT PO PRN (10:32)
[2021-12-24 12:38] VITALS: BP 91/59
[2021-12-24] MEDS ORDERED: ANTIVERT TAB 25 MG PO PRN (13:19)
[2021-12-24] MEDS: ALPHAGAN 0.2% OPHTH SOLN AFFEYE SCH ×3 (14:01→14:13)
== END 2021-12-24 15:29 | disposition home health service (06) | DRG 872 ==
LOC: ER 10:18 → ICU 14:38 → MED/SURG 12-22 19:25
PROVIDERS: ADMIT Internal Medicine; ATTEND Internal Medicine
DX: W18.39XA Other fall on same level, initial encounter; Z89.612 Acquired absence of left leg above knee; N17.8 Other acute kidney failure; R41.82 Altered mental status, unspecified; K21.9 Gastro-esophageal reflux disease without esophagitis; I95.89 Other hypotension; K92.1 Melena; I10 Essential (primary) hypertension; S42.292A Other displaced fracture of upper end of left humerus, initial encounter for closed fracture; E87.0 Hyperosmolality and hypernatremia; K59.09 Other constipation; A41.1 Sepsis due to other specified staphylococcus; L89.152 Pressure ulcer of sacral region, stage 2; E86.0 Dehydration; L89.221 Pressure ulcer of left hip, stage 1; L89.899 Pressure ulcer of other site, unspecified stage; Z66 Do not resuscitate; B96.4 Proteus (mirabilis) (morganii) as the cause of diseases classified elsewhere; B96.1 Klebsiella pneumoniae [K. pneumoniae] as the cause of diseases classified elsewhere; Z20.822 Contact with and (suspected) exposure to COVID-19; R62.7 Adult failure to thrive; R79.1 Abnormal coagulation profile; M25.512 Pain in left shoulder; E78.2 Mixed hyperlipidemia; N39.0 Urinary tract infection, site not specified; D50.8 Other iron deficiency anemias